=== PATIENT | female | born 1930 | race Caucasian/White ===

== ENCOUNTER 2016-11-30 07:45 | Day surgery (SDC) | payer MEDICARE, BC ==
[~2016-11-30 07:45] MED LIST: ACET500CAP PO; ADVIL PM PO; ALPHAGAN P0.1 % OPH; B COMPLETE PO; CELEXA10 PO; FISH-EPA1000 MG PO; FOSAMAX70 MG PO; MELA3 PO; MELATONIN OTC PO; MELATONIN1 M1 PO; MULTIPLE VIT PO; MULTIVIT/MIN PO; MULTIVITAMI1 PO; OS500+D PO; OSTEO BI-FLEX1 EACH PO; OSTEO BI-FLX PO; PEP10 PO; PEP20 PO; PLAVIX PO; PRESERVISION A1 EAC1 PO; PRESERVISION A1 EACH PO; PRESERVISION PO; PROBIOTIC PO; TYLENOL ARTH650 MG PO; TYLENOL PM PO; XANAX1 MG PO; ZOCOR40 PO
[2017-03-02] MEDS ORDERED: ALPHAGAN OPH (10:41)
[2017-03-02] MEDS ORDERED: CELEXA10 PO (10:45)
[2017-03-02] MEDS ORDERED: ARICEPT5 PO (10:46)
[2017-03-02] MEDS ORDERED: MEDS (11:12)
== END 2016-11-30 23:59 | disposition home health service (06) ==
LOC: SDC 07:45
PROVIDERS: Ophthalmology
PROC: 085K3ZZ Destruction of Left Lens, Percutaneous Approach (ICD-10-PCS; principal; 2016-11-30 08:00)
DX: H26.492 Other secondary cataract, left eye (principal); E78.00 Pure hypercholesterolemia, unspecified; Z88.5 Allergy status to narcotic agent; Z90.49 Acquired absence of other specified parts of digestive tract; Z90.710 Acquired absence of both cervix and uterus; Z98.890 Other specified postprocedural states
CPT/HCPCS: A9270-GY